=== PATIENT | male | born 1960 | race Caucasian/White ===

== ENCOUNTER 2017-04-30 18:50 | Emergency (ER) | payer OTHER ==
[2017-04-30 18:51] VITALS: BP 124/80; PULSE 102; RESP 20; TEMP 98.3; O2SAT 98
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
[2017-04-30] MEDS ORDERED: KETOROLAC TROMETHAMINE 60 MG/2 ML (IM) VIAL IM ONE (20:45)
--- NOTE | 2017-04-30 21:28 | RADRPT ---
EXAM DATE/TIME: 04/30/2017 21:07 [facility] COMPARISON: No previous studies available for comparison. INDICATIONS : Chest Pain MEDICAL HISTORY : Atrial Fib SURGICAL HISTORY : None. ENCOUNTER: Initial ACUITY: 1 day PAIN SCORE: 0/10 LOCATION: Bilateral chest FINDINGS: A single view of the chest demonstrates the lungs to be symmetrically aerated without evidence of mas s, infiltrate or effusion. The cardiomediastinal contours are unremarkable. Osseous structures are intact. CONCLUSION: No acute disease. Ken Parra MD on April 30, 2017 at 21:26 Board Certified Radiologist. This report was verified electronically.
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
[2017-04-30] MEDS ORDERED: IBUP-232 PO (22:19)
[2017-04-30] MEDS ORDERED: HYDR-3533 PO (22:19)
== END 2017-04-30 23:06 | disposition home or self-care (01) ==
LOC: NEPD 18:50
DX: S62.612A Displaced fracture of proximal phalanx of right middle finger, initial encounter for closed fracture (principal); S62.304A Unspecified fracture of fourth metacarpal bone, right hand, initial encounter for closed fracture; R07.81 Pleurodynia; Z86.79 Personal history of other diseases of the circulatory system; V49.88XA Car occupant (driver) (passenger) injured in other specified transport accidents, initial encounter
CPT/HCPCS: 29125; 71010; 73130; 96372; 99284; J1885